=== PATIENT | female | born 1960 | race Caucasian/White ===

== ENCOUNTER → 2018-02-22 | Outpatient (REF) | payer OTHER | LOC: M SFHCPLAZ 02-23 11:45 | DX: D22.5 Melanocytic nevi of trunk (principal); D04.61 Carcinoma in situ of skin of right upper limb, including shoulder | CPT/HCPCS: 88305 ==

== ENCOUNTER → 2021-10-11 | Outpatient (CLI) | payer BC, OTHER ==
[~2021-10-11] MED LIST: LEVO88TA3 PO; OMEP1CAP73 PO; OXYC1TAB23 PO; TOPI100T9 PO; VITMTA PO
== END ==
LOC: M LABSMTC 09:56
PROVIDERS: ATTEND Anesthesiology
DX: Z01.812 Encounter for preprocedural laboratory examination (principal); Z20.822 Contact with and (suspected) exposure to COVID-19

== ENCOUNTER 2021-10-14 06:28 | Day surgery (SDC) | payer BC, OTHER ==
[~2021-10-14] VITALS: Ht 172.7 cm; Wt 70.2 kg
[~2021-10-14 06:28] MED LIST changes: +NS 1,000 ML IV ONE
[2021-10-14] MEDS ORDERED: propofoL 200 MG/20 ML VIAL As Ordered ONE ×2 (07:26→09:05)
[2021-10-14] MEDS ORDERED: LIDOCAINE 2% 100MG/5ML SDV (FOR ANES.) As Ordered ONE (07:26)
[2021-10-14] MEDS ORDERED: fentaNYL 100 MCG/2 ML INJECTION As Ordered ONE (08:19)
[2021-10-14 08:54] VITALS: BP 117/75
== END 2021-10-14 09:03 | disposition home or self-care (01) ==
LOC: M OPP 06:28
PROVIDERS: ATTEND Surgery
DX: Z86.010 Personal history of colon polyps (principal); K22.70 Barrett's esophagus without dysplasia; K63.5 Polyp of colon; D13.0 Benign neoplasm of esophagus; K64.1 Second degree hemorrhoids; K22.89 Other specified disease of esophagus; E03.9 Hypothyroidism, unspecified; K21.9 Gastro-esophageal reflux disease without esophagitis; F41.9 Anxiety disorder, unspecified; G43.909 Migraine, unspecified, not intractable, without status migrainosus; Z91.040 Latex allergy status; Z79.899 Other long term (current) drug therapy
CPT/HCPCS: 43239; 45380; 88305; J3010